=== PATIENT | male | born 1980 | race African-American/Black ===

== ENCOUNTER → 2021-09-27 | Emergency (ER) | payer OTHER ==
[~2021-09-27] VITALS: Ht 193 cm; Wt 81.7 kg
[~2021-09-27] MED LIST: ACYCLOVIR 800800 MG PO; AUGMENTIN 875-1 EACH PO; AUGMENTIN 875875 MG PO; CITRATE OF MAG296 ML PO; CLARITIN10 MG PO; COLACE100 MG PO; DOXYCYCLINE 10100 MG PO; FLAGYL500 M1 PO; FLONASE 0.05%50 MCG NASAL; IBUPROFEN 600600 M1 PO; IBUPROFEN 800800 M1 PO; NOHOMEMEDICATIONS; NORCO 5-325 TA1 EACH PO; ONDANSETRON HCL4 M2 PO; PAXIL10 MG; PENICILLIN VK500 M1 PO; PREDNISONE 20 M20 MG PO; ZOFRAN ODT8 MG PO
[2021-09-27 17:51] VITALS: BP 114/85
== END ==
LOC: M.ERS 16:21
DX: R10.11 Right upper quadrant pain (principal); R19.7 Diarrhea, unspecified; K59.00 Constipation, unspecified; F17.210 Nicotine dependence, cigarettes, uncomplicated; Z91.013 Allergy to seafood